=== PATIENT | male | born 1995 | race Caucasian/White ===

== ENCOUNTER 2018-08-11 12:17 | Emergency (ER) | payer OTHER, SELFPAY ==
[2018-08-11 12:22] VITALS: BP 134/69; PULSE 57; RESP 16; TEMP 36.6; O2SAT 98
--- NOTE | 2018-08-11 12:35 | W.ED.GENAD ---
Discharge Plan Disposition Patient Disposition: HOME Condition: Stable Discharge Details Chief Complaint: Orthopedic Clinical Impression: Injury of knee Primary Care Provider: Jerry Florence ED Provider: Lucia Ledesma Home Meds and New Rx's Prescriptions: No Action No Known Home Meds RF: 0 Discharge Instructions Instructions: Knee Pain (ED), Hinged Knee Brace (ED) Additional Instructions: Please return immediately to the emergency department he develop any new or worsening symptoms or if you become otherwise concerned. It is extremely important that you make an appointment to be seen as soon as possible and follow-up for this visit by an orthopedic surgeon and also by your primary care doctor. Referrals: Glen Jalloh MD [ [facility] STAFF PHYSICIAN] - Jerry Florence [Primary Care Provider] - Discharge Data Discharge Date/Time-TO BE ENTERED AT DEPARTURE: 08/11/18 14:05 Medical Decision Making Joel Byrne is a 23 y/o man with out reported history of major medical problems who presented to the emergency department with left-sided knee pain after fall while skiing yesterday. On exam, patient is very well and nontoxic appearing. Left leg is neurovascularly intact. No knee effusion, tenderness palpation of the left medial and lateral knee joint. Patient did not tolerate anterior/posterior drawer or varus/valgus testing secondary to pain. Concern for likely ligamentous versus meniscal injury. Plan for screening x-ray. Exam/history is not consistent with compartment syndrome, septic joint, DVT, significant vascular injury X-ray negative. Patient with pain with extension of the knee, plan for hinged knee brace, outpatient follow-up with orthopedics. I had a lengthy discussion with the patient regarding return to emergency department cautions, importance of outpatient follow-up with orthopedics. Patient was discharged with clear plan for outpatient follow-up. He was placed on the orthopedic list for referral. He verbalized understanding the plan and is amenable. All questions were answered. Medical Records Medical records reviewed: Yes I reviewed the patient's medical records. Imaging Data Radiologic Study: Attestation: I personally reviewed and interpreted this imaging study as follows: Radiologist's impression: LEFT KNEE: Comparison is made with [id number]. No fracture is identified. The joint spaces are well maintained. No joint effusion is seen. IMPRESSION: Negative left knee. HPI General Mode of arrival: ambulatory. Date/Time Provider Initiated Documentation: 08/11/18 12:35. Limitations to Documentation: no limitations. Information obtained by: patient, RN notes reviewed and old records reviewed. HPI Narrative: Joel Byrne is a 23-year-old male without reported history of medical problems presenting to the emergency department with knee pain. Patient reports that yesterday he was skiing, when he fell after doing a jump, and hyperextended his knee. Patient reports that he has had posterior, medial, and lateral knee pain since the accident. He did not his head or lose consciousness, he denies any other pain or injury. Patient reports that pain is worse when he tries to fully extend or flex the knee or bear weight, and he has been using crutches at home. He denies weakness, numbness/tingling, or swelling. Previously in his usual state of health. Related Data Home Medications Medication Instructions Recorded Confirmed Unknown [No Known Home Meds] 08/11/18 08/11/18 Allergies Allergy/AdvReac Type Severity Reaction Status Date / Time No Known Allergies Allergy Unverified 08/11/18 12:27 General Stated Complaint: Orthopedic SYED: 4 Review of Systems Review of Systems Constitutional: denies fevers Eyes: denies eye pain ENT: denies facial pain, dental pain, sore throat Cardiovascular: denies chest pain Respiratory: denies SOB, cough GI: denies abdominal pain, vomiting, diarrhea : denies flank pain MSK: denies back pain, neck pain, myalgias, reports left knee pain Skin: denies skin wound Neuro: denies headaches, numbness, weakness PFSH Family History Mother No problems noted. Father No problems noted. Brother No problems noted. Grandfather No problems noted. Grandfather No problems noted. Grandmother No problems noted. Grandmother No problems noted. Social History Smoking/Tobacco Use Status: Former Tobacco Use Alcohol Intake: current Alcohol Intake frequency: a few times a week Drug use: Never Substance use type: does not use Do you feel safe at home: Yes Do you feel safe in your relationship?: Yes Exam Narrative Exam Narrative: Constitutional: well and [id number], pleasant, conversing normally HENT: head atraumatic/normocephalic/normal inspection, mucous membranes moist Eyes: conjunctiva normal, sclera normal, pupils 3mm b/l Neck: no stridor, normal ROM, trachea midline Resp: normal work of breathing Cardio: normal rate, normal rhythm Skin: warm, dry, normal color, no rash Neuro: alert, not altered, grossly non-focal, normal tone Ext: no edema, left foot, ankle, distal tib-fib/fib nontender to palpation. Full range of motion of toes and left ankle. Left knee with mild tenderness palpation of the medial and lateral joint. No popliteal or patellar tenderness palpation, no tenderness of the anterior proximal tibia. Knee is held at 45 degrees, patient has increased pain with further flexion or extension. DP and PT pulses are intact. Brisk cap refill. Psych: normal mood, normal affect, normal behavior Course Vital Signs Temperature 36.6 C 08/11/18 12:22 Pulse 57 L 08/11/18 12:22 Respiratory Rate 16 08/11/18 12:22 Blood Pressure 134/69 08/11/18 12:22 Pulse Oximetry 98 08/11/18 12:22 Temperature 36.6 C 08/11/18 12:22 Temperature Source Skin 08/11/18 12:22 Pulse 57 L 08/11/18 12:22 Respiratory Rate 16 08/11/18 12:22 Respiratory Effort Non-Labored 08/11/18 12:26 Blood Pressure 134/69 08/11/18 12:22 Pulse Oximetry 98 08/11/18 12:22 Pain Level 5 08/11/18 12:22
--- NOTE | 2018-08-11 12:51 | DI.RAD_ITS ---
SYMPTOMS/DIAGNOSIS: TRAUMA, KNEE PAIN LEFT KNEE: Comparison is made with [id number]. No fracture is identified. The joint spaces are well maintained. No joint effusion is seen. IMPRESSION: Negative left knee.
--- NOTE | 2018-08-11 13:30 | ED.GENADUL_ITS ---
Discharge Plan Disposition Patient Disposition: HOME Condition: Stable Discharge Details Chief Complaint: Orthopedic Clinical Impression: Injury of knee Primary Care Provider: Jerry Florence ED Provider: Lucia Ledesma Home Meds and New Rx's Prescriptions: No Action No Known Home Meds RF: 0 Discharge Instructions Instructions: Knee Pain (ED), Hinged Knee Brace (ED) Additional Instructions: Please return immediately to the emergency department he develop any new or worsening symptoms or if you become otherwise concerned. It is extremely important that you make an appointment to be seen as soon as possible and follow-up for this visit by an orthopedic surgeon and also by your primary care doctor. Referrals: Glen Jalloh MD [ [facility] STAFF PHYSICIAN] - Jerry Florence [Primary Care Provider] - Discharge Data Discharge Date/Time-TO BE ENTERED AT DEPARTURE: 08/11/18 14:05 Medical Decision Making Joel Byrne is a 23 y/o man with out reported history of major medical problems who presented to the emergency department with left-sided knee pain after fall while skiing yesterday. On exam, patient is very well and nontoxic appearing. Left leg is neurovascularly intact. No knee effusion, tenderness palpation of the left medial and lateral knee joint. Patient did not tolerate anterior/posterior drawer or varus/valgus testing secondary to pain. Concern for likely ligamentous versus meniscal injury. Plan for screening x-ray. Exam/history is not consistent with compartment syndrome, septic joint, DVT, significant vascular injury X-ray negative. Patient with pain with extension of the knee, plan for hinged knee brace, outpatient follow-up with orthopedics. I had a lengthy discussion with the patient regarding return to emergency department cautions, importance of outpatient follow-up with orthopedics. Patient was discharged with clear plan for outpatient follow-up. He was placed on the orthopedic list for referral. He verbalized understanding the plan and is amenable. All questions were answered. Medical Records Medical records reviewed: Yes I reviewed the patient's medical records. Imaging Data Radiologic Study: Attestation: I personally reviewed and interpreted this imaging study as follows: Radiologist's impression: LEFT KNEE: Comparison is made with [id number]. No fracture is identified. The joint spaces are well maintained. No joint effusion is seen. IMPRESSION: Negative left knee. HPI General Mode of arrival: ambulatory . Date/Time Provider Initiated Documentation: 08/11/18 12:35 . Limitations to Documentation: no limitations . Information obtained by: patient, RN notes reviewed and old records reviewed . HPI Narrative: Joel Byrne is a 23-year-old male without reported history of medical problems presenting to the emergency department with knee pain. Patient reports that yesterday he was skiing, when he fell after doing a jump, and hyperextended his knee. Patient reports that he has had posterior, medial, and lateral knee pain since the accident. He did not his head or lose consciousness, he denies any other pain or injury. Patient reports that pain is worse when he tries to fully extend or flex the knee or bear weight, and he has been using crutches at home. He denies weakness, numbness/tingling, or swelling. Previously in his usual state of health. Related Data Home Medications Medication Instructions Recorded Confirmed Unknown [No Known Home Meds] 08/11/18 08/11/18 Allergies Allergy/AdvReac Type Severity Reaction Status Date / Time No Known Allergies Allergy Unverified 08/11/18 12:27 General Stated Complaint: Orthopedic SYED: 4 Review of Systems Review of Systems Constitutional: denies fevers Eyes: denies eye pain ENT: denies facial pain, dental pain, sore throat Cardiovascular: denies chest pain Respiratory: denies SOB, cough GI: denies abdominal pain, vomiting, diarrhea : denies flank pain MSK: denies back pain, neck pain, myalgias, reports left knee pain Skin: denies skin wound Neuro: denies headaches, numbness, weakness PFSH Family History Mother No problems noted. Father No problems noted. Brother No problems noted. Grandfather No problems noted. Grandfather No problems noted. Grandmother No problems noted. Grandmother No problems noted. Social History Smoking/Tobacco Use Status: Former Tobacco Use Alcohol Intake: current Alcohol Intake frequency: a few times a week Drug use: Never Substance use type: does not use Do you feel safe at home: Yes Do you feel safe in your relationship?: Yes Exam Narrative Exam Narrative: Constitutional: well and [id number], pleasant, conversing normally HENT: head atraumatic/normocephalic/normal inspection, mucous membranes moist Eyes: conjunctiva normal, sclera normal, pupils 3mm b/l Neck: no stridor, normal ROM, trachea midline Resp: normal work of breathing Cardio: normal rate, normal rhythm Skin: warm, dry, normal color, no rash Neuro: alert, not altered, grossly non-focal, normal tone Ext: no edema, left foot, ankle, distal tib-fib/fib nontender to palpation. Full range of motion of toes and left ankle. Left knee with mild tenderness palpation of the medial and lateral joint. No popliteal or patellar tenderness palpation, no tenderness of the anterior proximal tibia. Knee is held at 45 degrees, patient has increased pain with further flexion or extension. DP and PT pulses are intact. Brisk cap refill. Psych: normal mood, normal affect, normal behavior Course Vital Signs Temperature 36.6 C 08/11/18 12:22 Pulse 57 L 08/11/18 12:22 Respiratory Rate 16 08/11/18 12:22 Blood Pressure 134/69 08/11/18 12:22 Pulse Oximetry 98 08/11/18 12:22 Temperature 36.6 C 08/11/18 12:22 Temperature Source Skin 08/11/18 12:22 Pulse 57 L 08/11/18 12:22 Respiratory Rate 16 08/11/18 12:22 Respiratory Effort Non-Labored 08/11/18 12:26 Blood Pressure 134/69 08/11/18 12:22 Pulse Oximetry 98 08/11/18 12:22 Pain Level 5 08/11/18 12:22
[2018-08-11 14:03] VITALS: BP 134/69; PULSE 57; RESP 16; TEMP 36.6; O2SAT 98
== END 2018-08-11 14:05 | disposition home or self-care (01) ==
LOC: ER 14:04
PROVIDERS: Emergency Provider Student in an Organized Health Care Education/Training Program; PCP Family Medicine
DX: S89.92XA Unspecified injury of left lower leg, initial encounter (principal); V00.321A Fall from snow-skis, initial encounter; Y93.23 Activity, snow (alpine) (downhill) skiing, snowboarding, sledding, tobogganing and snow tubing
CPT/HCPCS: 29505; 99283; 73564; L1820

== ENCOUNTER 2018-08-25 01:10 | Outpatient (CLI) | payer OTHER, SELFPAY ==
--- NOTE | 2018-08-25 14:44 | DI.MRI_ITS ---
SYMPTOM/DIAGNOSIS: LT KNEE LOCKING, LT INTERNAL DERANGEMENT, PAIN, M23.92 LEFT KNEE MRI: Routine noncontrast examination. There is truncation in size of the posterior horn of the medial meniscus. Increased meniscal tissue is seen anteriorly in the medial joint compartment and in the region of the intercondylar notch. The findings are suspicious for a Bucket Handle tear of the medial meniscus. The lateral meniscus is unremarkable. The anterior and posterior cruciate ligaments are intact as are both the medial and lateral collateral ligament complexes, extensor mechanism, medial and lateral retinaculum and popliteus tendon. The articular cartilage appears unremarkable. There is marrow edema seen in the medial tibial plateau. Marrow signal is otherwise within normal limits. There is a large joint effusion. The muscles show normal signal and size. No significant muscular fatty atrophy is identified. No soft tissue mass or focal fluid collection is appreciated. IMPRESSION: Findings suspicious for a Bucket Handle tear of the medial meniscus. Contusion involving the medial tibial plateau. Large joint effusion.
== END 2018-08-25 01:30 ==
PROVIDERS: PCP Family Medicine; Visit Provider Student in an Organized Health Care Education/Training Program
DX: M25.562 Pain in left knee (principal); M25.462 Effusion, left knee; M23.92 Unspecified internal derangement of left knee; S83.212A Bucket-handle tear of medial meniscus, current injury, left knee, initial encounter
CPT/HCPCS: 73721

== ENCOUNTER 2018-09-02 11:18 | Day surgery (SDC) | payer OTHER, SELFPAY ==
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
[2018-09-02 11:35] VITALS: BP 136/72; PULSE 41; RESP 16; TEMP 36.1; O2SAT 99
[2018-09-02] MEDS: Lactated Ringers 1,000 ML 80 ML IV (12:07)
[2018-09-02] MEDS: ceFAZolin 2 GM/50 ML BAG IVPB (14:03)
[2018-09-02] MEDS: Bupivacaine 0.5% Pres-Free 30 ML VIAL (15:00)
[2018-09-02 15:05] VITALS: BP 119/65; PULSE 39; RESP 20; TEMP 36.7; O2SAT 100
[2018-09-02 15:10] VITALS: BP 124/86; PULSE 42; RESP 22; TEMP 36.7; O2SAT 99
--- NOTE | 2018-09-02 15:11 | PDOC.DSDIS_ITS ---
Discharge Plan Disposition Patient Disposition: HOME Condition: Good Discharge Details Reason For Visit: Left Medial Meniscus Tear Attending Provider: Glen Jalloh Primary Care Provider: Jerry Florence Home Meds and New Rx's Prescriptions: New acetaminophen 500 mg tablet 1,000 mg PO Q8H PRN (Reason: pain) Qty: 90 RF: 3 ibuprofen 600 mg tablet 600 mg PO TID PRNQty: 90 RF: 3 oxycodone 5 mg tablet 5 mg PO Q4H Qty: 12 RF: 0 Discontinued ibuprofen 200 mg Capsule 800 mg PO PRN PRNRF: 0 Discharge Instructions Additional Instructions: Dr. Jalloh?s Discharge Instructions Surgery: Knee Arthroscopic Medial Meniscus Repair Activity: You should avoid any weight bearing. You may rest the foot on the ground, but no weight. Use crutches at all times. You may start to bed the knee up to 90 degrees but do so with the heel supported. No force to the knee. Dressing/Bandage: The dressing should stay on for at least 48-72 hours. The wounds should then be covered with a dry dressing such as gauze and tape or various-sized bandaids. It should stay covered until your follow-up appointment. If there are steri-strips (little strips of tape), these should st ay on until your follow-up. Medications: Aspirin (81mg): take one baby Aspirin daily for 14 days to prevent blood clots Acetaminophen/Tylenol Extra-Strength: take two extra-strength tablets (1000mg) every 8 hours for baseline pain control. 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 You have been prescribed narcotic pain medication to be used for breakthrough pain. Use only when pain is not controlled and use prior to pain being intolerable. You have been prescribed 600mg Ibuprofen to take every 8 hours as needed. Colace/Miralax: The narcotic pain medications can cause constipation, so you should take an [id number] stool softener (such as Colace or Miralax) to help with a bowel movement. Follow-up: 10-14 days Referrals: Glen Jalloh MD [ [facility] STAFF PHYSICIAN] - Equipment/Supplies: Non-Weight Bearing Crutches Activity:: Elevate Remove Dressings/Wound Care:: 72 hours Shower/Bathe:: 72 hours Activity:: Activity as Tolerated Diet:: As Tolerated Discharge Orders Discharge Orders: Discharge Order (Routine); Ordered 09/02/18 Ordered By: Glen Jalloh DS: Diagnosis Discharge Diagnosis (1) Traumatic tear of medial meniscus of left knee: Status: Acute
[2018-09-02 15:15] VITALS: BP 124/86; PULSE 40; RESP 17; TEMP 36.8; O2SAT 99
[2018-09-02] MEDS: fentaNYL 100 MCG/2 ML VIAL IVP ×2 (15:25→15:35)
[2018-09-02 15:35] VITALS: BP 128/66; PULSE 42; RESP 19; TEMP 36.8; O2SAT 98
[2018-09-02] MEDS: oxyCODONE 5 MG TAB PO (16:11)
[2018-09-02 16:51] VITALS: BP 119/68; PULSE 57; RESP 16; TEMP 37.3; O2SAT 100
--- NOTE | 2018-09-03 06:51 | ROE_ITS ---
Date of service: 09/02/18 Time of Service: 15:43 Operative Note DATE OF PROCEDURE: 09/02/18 PRE-OP DIAGNOSIS: Left knee medial meniscal tear POST-OP DIAGNOSIS: same PROCEDURE: Left knee arthroscopic medial meniscal repair SURGEON: Glen Jalloh ANESTHESIA: GETA ESTIMATED BLOOD LOSS: 0 PATHOLOGY: none sent COMPLICATIONS: None Patient was transported to: PACU Patient's condition: stable Indications: I have seen Jamal in clinic for symptoms of a meniscus tear. This was confirmed based on MRI and exam findings. I discussed knee arthroscopy with meniscal intervention with the patient. I reviewed the risks of the procedure to include, but not limited to, bleeding, infection, pain, stiffness, damage to nerves or vessels, recurrence, blood clot. Despite these risks, the patient elected to proceed. 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 The consent was reviewed with the patient and signed. The history and physical was updated. All questions were answered. He was taken back to the operating room. The patient was placed into the supine position on the operating room table. A nonsterile tourniquet was placed high onto the leg but not used. All bony prominences were well padded. Prophylactic antibiotics in the form of cefazolin were administered. The left leg was then prepped with Chloraprep and draped in a standard fashion with stockinette and extremity drape. A timeout to confirm correct identity, side and site, procedure, allergies, anesthesia, and medical concerns was performed. The leg was placed into a pneumatic leg zhao, [id number]. A standard lateral portal was made at the lateral border of the patella tendon in line with the inferior pole of the patella, soft spot. The skin and deep tissue was incised sharply and the blunt trochar was inserted atraumatically. A diagnostic arthroscopy was performed and the findings are listed above. The suprapatellar pouch had mild global inflammatory change. The patellofemoral articulation showed grade I chondromalacia at the apex as well as good tracking. The lateral gutter had no loose bodies and the medial gutter had no loose bodies. The knee was brought into some valgus stress in extension to open the medial compartment. The posterior aspect the medial meniscus was easily appreciable anterior to the medial femur and within the notch. This represented a completely displaced bucket-handle tear as expected. A medial portal was made, localized by a spinal needle. The portal was created with an #11 blade through skin and capsule under direct visualization avoiding any meniscal injury. A probe was then inserted into the medial compartment. The displaced bucket-handle tear was reduced with the probe. The scope was also driven around the medial border which showed the tear came from the meniscal capsular junction with very little if any remnant of the visible periphery. The medial compartment was fully inspected. The chondral surface of the tibia showed no significant chondromalacia and the surface of the femur showed no significant chondromalacia. The medial meniscus was debrided at its torn edge using a shaver and rasp. The knee was very diff icult to maneuver through that posterior corner. The posterior horn was displaced for better debridement but visualization was limited. The meniscus was once again reduced. Given the limited meniscal remnant cuff I used a all inside meniscal repair device that did include anchors. This On-Q-itytec true span device was used. The viewing portal was switched to the medial compartment. Coming from the lateral position, I placed a horizontal mattress within the meniscus making sure to penetrate through the capsule. This suture was then pulled which cinched down the suture. This showed excellent reapproximation of the meniscus to the meniscal capsular junction. 2 additional anchors were then placed one posterior to this between the posterior horn and the root and another anterior. This reduced the meniscus to the periphery. A probe was then used from different positions which showed that the meniscus was no longer displaceable. There was some fraying on the undersurface. However, I do not think that there is room to place further anchors nor did I think it made sense to do any additional procedure for this area. The notch was then inspected which showed an intact ACL and an intact PCL. There was a good amount of inflammatory change around the ACL. The leg was then brought into a figure of 4 position. The lateral compartment was fully inspected with the arthroscope and a probe. The chondral surface of the lateral femur showed no significant chondromalacia. The chondral surface of the lateral tibia showed no significant chondromalacia. The lateral meniscus had no meni scal tear. The arthroscope was brought back into the suprapatellar pouch and the leg was in full extension. The knee was thoroughly irrigated with the arthroscopic fluid on high flow and pressure. Inflow was stopped and excess fluid was removed. The wounds were closed with 4-0 Nylon. They were dressed with Xeroform, 4x4 gauze, ABD pad, Kerlix and an VASILIY wrap. A cryo-cuff was applied. The patient tolerated the procedure well and was returned to the Same Day Surgery area in a stable condition suffering no known complication.
== END 2018-09-02 17:03 | disposition home or self-care (01) ==
PROVIDERS: PCP Family Medicine; Visit Provider Student in an Organized Health Care Education/Training Program
PROC: (CPT 29870; principal; 2018-09-02 13:15)
DX: S83.212A Bucket-handle tear of medial meniscus, current injury, left knee, initial encounter (principal); X50.9XXA Other and unspecified overexertion or strenuous movements or postures, initial encounter; Y93.23 Activity, snow (alpine) (downhill) skiing, snowboarding, sledding, tobogganing and snow tubing; M22.42 Chondromalacia patellae, left knee; M12.562 Traumatic arthropathy, left knee
CPT/HCPCS: 29882; NC; J0690; J1100; J2405; J3010; L8699

== ENCOUNTER 2020-01-26 12:47 | Outpatient (CLI) | payer OTHER, SELFPAY ==
[2020-01-28 07:28] LABS: Patient Race White; SARS-CoV-2 RNA Undetected (Undetected); SARS-CoV-2 Specimen Source Nasopharynx
== END 2020-01-26 13:07 ==
PROVIDERS: PCP Family Medicine; Visit Provider Family Medicine
DX: Z11.59 Encounter for screening for other viral diseases (principal)
CPT/HCPCS: U0003